=== PATIENT | male | born 1970 | race African-American/Black ===

== ENCOUNTER 2017-06-07 23:06 | Emergency (ER) | payer MEDICAID ==
--- NOTE | ~2017-06-07 | CR72 ---
[facility] A Service of [facility] & [facility] RADIOLOGY TEXT RESULTS PATIENT: ANABELL LIMON LOCATION: [employer] : [birth year] UNIT #: [id number] AGE: [address]: Vinny Osullivan MD SEX: M ORDER DR: [id number] [facility] [address] [place], [place] [address] [id number] E MR#: [id number] Acc #: [id number] NAME: ANABELL LIMON : 1970 SEX: M STUDY DATE/TIME: 06/08/2017 1:37 UNIT: [employer] ROOM: STUDY DESCRIPTION: CR Chest Single View Portable Attending Physician: Vinny Osullivan M.D. Ordering Physician: Vinny Osullivan M.D. Primary Care Physician: Primary Care Physician No MEDICAL IMAGING REPORT This report is preliminary unless electronic signature is present EXAM Portable chest, 06/08/2017 INDICATION Left-sided chest pain since last night. COMPARISON 08/10/2012 FINDINGS A portable view of the chest was obtained. The heart size and vascularity are normal and the lungs are clear. There is a calcified granuloma in the left lung. Bones are normal. IMPRESSION No active disease. Dictated by... Himanshu Michael M.D. THIS IS AN ELECTRONICALLY VERIFIED REPORT Himanshu Michael M.D. at 06/09/2017 5:00 AM [place] TD: 06/09/2017 03:03 JOB #: [id number] MEDICAL IMAGING REPORT Page 1 of 1 COPY
--- NOTE | ~2017-06-07 | CT71 ---
[facility] A Service of [facility] RADIOLOGY TEXT RESULTS PATIENT: ANABELL LIMON LOCATION: [facility] : 70 UNIT #: [id number] AGE: [address]: Vinny Osullivan MD SEX: M ORDER DR: [id number] [place], [place] [address] [id number] E MR#: [id number] Acc #: [id number] NAME: ANABELL LIMON : 1970 SEX: M STUDY DATE/TIME: 06/08/2017 1:38 UNIT: JU ROOM: STUDY DESCRIPTION: CT Head Wo Contrast Attending Physician: Vinny Osullivan M.D. Ordering Physician: Vinny Osullivan M.D. Primary Care Physician: Primary Care Physician No MEDICAL IMAGING REPORT This report is preliminary unless electronic signature is present EXAM CT scan of the head without contrast INDICATION Frontal headache for [address] exam was performed with one or more of the following radiation dose reduction techniques: automatic exposure control, adjustment of mA and/or kV according to patient size, and iterative reconstruction. FINDINGS Axial noncontrast images were obtained from the skull base to the vertex. Ventricular size and configuration are normal. There is no evidence of acute infarct or hemorrhage. There are no extra-axial fluid collections. No mass lesion or mass effect is seen. There are no skull fractures. IMPRESSION Normal noncontrast head CT. Dictated by... Himanshu Michael M.D. THIS IS AN ELECTRONICALLY VERIFIED REPORT Himanshu Michael M.D. at 06/09/2017 5:00 AM KARISSA/viktoriya TD: 06/09/2017 03:05 JOB #: [id number] [facility] A Service [facility] RADIOLOGY TEXT RESULTS PATIENT: ANABELL LIMON LOCATION: [facility] : 70 UNIT #: [id number] AGE: [address]: Vinny Osullivan MD SEX: M ORDER DR: MEDICAL IMAGING REPORT Page 1 of 1 COPY
--- NOTE | ~2017-06-07 | EKG ---
PATIENT: ANABELL LIMON UNIT #: [id number] Ventricular Rate: 50 BPM Atrial Rate: 50 BPM P-R Interval: 160 ms QRS Duration: 72 ms Q-T Interval: 386 ms QTC Calculation(Bezet): 351 ms P [place]: 81 degrees Calculated R [place]: 58 degrees Calculated T [place]: 75 degrees Diagnosis Line: Sinus bradycardia Diagnosis Line: Biatrial enlargement Diagnosis Line: Abnormal ECG Diagnosis Line: No previous ECGs available Diagnosis Line: Confirmed by YAJAIRA ANDRADE MD ([id number]) on Diagnosis Line: 06/08/2017 10:09:15 AM INTERPRETING MD: KAROLYN
[2017-06-08 01:38] LABS: BASOPHIL% 0.5 % (0-2.5); EOSINOPHIL% 0.2 % (0.0-7.0); HEMATOCRIT 44.7 % (38.0-50.0); HEMOGLOBIN 14.8 gm/dL (13.0-16.0); LYMPHOCYTE# 2.3 X10e3 (1.0-3.5); LYMPHOCYTE% 44.2 % (17.0-45.0); MEAN CELL VOLUME 90.9 FL (83-96); MEAN PLATELET VOLUME 7.5 FL (6.5-11.5); MONOCYTE# 0.5 X10e3 (0-1.0); MONOCYTE% 10.2 % (3.0-12.0); NEUTROPHIL# 2.3 X10e3 (1.5-7.1); NEUTROPHIL% 44.9 % (40-75); PLATELET COUNT 202 X10e3 (140-420); RED BLOOD COUNT 4.92 X10e (3.90-5.60); RED CELL DISTRIBUTION WIDTH 13.6 % (11.0-15.5); WHITE BLOOD COUNT 5.1 X10e3 (4.0-10.5)
[2017-06-08 01:40] LABS: DIFF IND NO
[2017-06-08 02:00] LABS: ALKALINE PHOSPHATASE 63 U/L (32-92); ALT (SGPT) 14 U/L (10-40); AST (SGOT) 21 U/L (10-42); BILIRUBIN, DIRECT 0.1 mg/dL (0.0-0.2); BILIRUBIN,INDIRECT 0.7 mg/dL (0.0-0.9); BILIRUBIN,TOTAL 0.8 mg/dL (0.2-2.0); BLOOD UREA NITROGEN 13 mg/dL (9-23); BUN/CREATININE RATIO 10.83; CALCIUM SERUM 9.3 mg/dL (8.4-10.2); CARBON DIOXIDE 28 mmol/L (22-31); CHLORIDE 101 mmol/L (100-111); CPK (CREATINE PHOSPHOKINASE) 47 IU/L (36-174); CREATININE SERUM 1.2 mg/dL (0.6-1.4); GLUCOSE FASTING 83 mg/dL (70-110); POTASSIUM 4.2 mmol/L (3.5-5.1); PROTEIN TOTAL SERUM 7.5 g/dL (6.0-8.3); SODIUM 137 mmol/L (135-145)
[2017-06-08 02:07] LABS: ALCOHOL BLOOD <5 mg/dL ([, 0])
[2017-06-08 03:34] LABS: POC - CKMB <1.0 ng/mL (0.0-7.9); POC - TROPONIN <0.05 ng/mL (<=0.05)
[2017-06-08 03:36] LABS: URINE SOURCE CLEAN CATCH
[2017-06-08 03:41] LABS: URINE APPEARANCE CLOUDY; URINE BILIRUBIN NEG (NEG); URINE BLOOD TRACE (NEG); URINE COLOR YELLOW; URINE GLUCOSE NEG (NEG); URINE KETONE TRACE (NEG); URINE LEUKOCYTE ESTERASE 1+ (NEG); URINE NITRATE POS (NEG); URINE PH 6.5 (5-8); URINE PROTEIN TRACE (NEG); URINE SPECIFIC GRAVITY 1.029 (1.003-1.035)
[2017-06-08 03:44] LABS: CULTURE INDICATED? YES; URINE BACTERIA AUWI 4+ (NEGATIVE); URINE SQUAMOUS EPITHELIAL CELL NONE SEEN /[HPF]
[2017-06-08 03:44] LABS: POC - CKMB <1.0 ng/mL (0.0-7.9); POC - TROPONIN <0.05 ng/mL (<=0.05)
[2017-06-08 04:04] LABS: AMPHETAMINE NEG (NEG); BARBITURATES NEG (NEG); BENZODIAZEPINES NEG (NEG); COCAINE POS (NEG); MARIJUANA POS (NEG); OPIATES NEG (NEG); TRICYCLIC ANTIDEPRESSANTS NEG (NEG); U METHADONE NEG (NEG)
== END 2017-06-08 04:20 | disposition home or self-care (01) ==
LOC: CED 23:06
PROVIDERS: Emergency Medicine
DX: R51 Headache (principal); R42 Dizziness and giddiness; F14.10 Cocaine abuse, uncomplicated; N39.0 Urinary tract infection, site not specified
CPT/HCPCS: 36415; 70450; 71010; 80048; 80076; 80307; 81003; 82550; 82553; 82947; 84484; 85025; 87086; 87186; 93005; 99285; G0480; J1885